=== PATIENT | male | born 1965 | race Hispanic/Latino ===

== ENCOUNTER 2017-02-13 22:13 | Emergency (ER) | payer OTHER ==
--- NOTE | 2017-02-13 22:20 | ED GI/GU/ABDOMINAL COMPLAINT ---
History of Present Illness General Chief Complaint: General Adult Stated Complaint: "I FEEL LIKE I CAN'T PEE" Source: patient, EMS, police Exam Limitations: no limitations Vital Signs & Intake/Output Vital Signs & Intake/Output Vital Signs Date Time Temp Pulse Resp B/P Pulse O2 O2 Flow FiO2 Ox Delivery Rate 02/130 98.0 78 16 126/67 02/13 2219 98.0 78 16 126/67 98 Room Air Room Air Allergies Coded Allergies: No Known Allergies (02/13/17) Reconcile Medications Alprazolam (Unknown Strength) TABLET (Unknown Dose) PO DAILY ANXIETY ( Reported) Diphenhydramine HCl (Benadryl) (Unknown Strength) CAPSULE (Unknown Dose) PO AD PRN UNKNOWN (Reported) Metformin HCl (Glucophage) (Unknown Strength) TABLET (Unknown Dose) PO BID DM (Reported) Tamsulosin HCl (Flomax) 0.4 MG CAP.ER.24H 1 CAP PO DAILY URINARY (Reported) Triage Note: PT BIBA FROMPOLICE CUSTODY FOR TORUBLEURINATING FOR 3 DAYS.STATES HE NEEDS FLOMAX Triage Nurses Notes Reviewed? yes HPI: Patient brought in from police lockup for urinary retention. Patient states that he has BPH and has been off of his Flomax for the past 3 days because he ran out of them. Patient has been in lockup since this afternoon and states that he has not P in the past few hours. Patient states this was happens to him when he runs out of Flomax but he is able to P a few hours after taking the Flomax. Patient refuses to have a catheter put in. Patient states that he has a pressure sensation over his bladder. The pain is constant. He rates the pain as 6 out of 10. There is no radiation. There are no aggravating or mitigating factors. Patient also states that he feels very anxious and he occasionally takes Xanax however he does not have it with him. Patient denies any suicidal or homicidal ideations. Past History Travel History Traveled to [place] past 21 day No Medical History Any Pertinent Medical History? see below for history Neurological: NONE EENT: NONE Cardiovascular: NONE Respiratory: NONE Gastrointestinal: NONE Hepatic: NONE Renal: BPH Musculoskeletal: NONE Psychiatric: anxiety Endocrine: NONE Blood Disorders: NONE Cancer(s): NONE CRIBBER/Reproductive: NONE Surgical History Surgical History: non-contributory Psychosocial History What is your primary language Bah[place]i Tobacco Use: Current Daily Use Daily Tobacco Use Amount/Type: => 5 Cigarettes daily ETOH Use: denies use Illicit Drug Use: denies illicit drug use Family History Hx Contributory? No Review of Systems Review of Systems Constitutional: Reports: no symptoms. EENTM: Reports: no symptoms. Respiratory: Reports: no symptoms. Cardiovascular: Reports: no symptoms. GI: Reports: no symptoms. Genitourinary: Reports: see HPI, hesitation. Musculoskeletal: Reports: no symptoms. Skin: Reports: no symptoms. Neurological/Psychological: Reports: see HPI, anxiety. Hematologic/Endocrine: Reports: no symptoms. Immunologic/Allergic: Reports: no symptoms. All Other Systems: Reviewed and Negative Physical Exam Physical Exam General Appearance: well developed/nourished, alert, awake, anxious, mild distress Head: atraumatic, normal appearance Eyes: Bilateral: PERRL, EOMI. Ears, Nose, Throat, Mouth: hearing grossly normal, moist mucous membrane Neck: normal inspection, supple, full range of motion Respiratory: normal breath sounds, chest non-tender, no respiratory distress, lungs clear Cardiovascular: regular rate/rhythm, normal peripheral pulses Gastrointestinal: normal bowel sounds, soft, non-tender, no organomegaly Back: normal inspection, normal range of motion, NO CVA TENDERNESS Extremities: HEALING BRUISE TO RIGHT HIP Neurologic/Psych: no motor/sensory deficits, awake, alert, oriented x 3, normal gait Skin: intact, normal color, warm/dry Core Measures ACS in differential dx? No Severe Sepsis Present: No Septic Shock Present: No Progress Differential Diagnosis: urinary retention, UTI/pyelo Plan of Care: Current Medications Sig/[place] Start time Last Medication Dose Stop Time Status Admin Alprazolam 0.5 MG ONCE ONE 02/13 2245 AC (Xanax) 02/13 2246 Initial ED EKG: none Departure Departure Disposition: HOME OR SELF CARE Condition: Stable Clinical Impression Primary Impression: Urinary retention Secondary Impressions: Anxiety Departure Forms: Customer Survey General Discharge Information Prescriptions: Current Visit Scripts Tamsulosin HCl (Flomax) 1 CAP PO DAILY #30 CAP
[2017-02-13] MEDS ORDERED: FLOMAX0.4 M1 PO ×2 (22:25→22:41)
[2017-02-13] MEDS ORDERED: GLUCOPHAGE1000 M1 PO (22:25)
[2017-02-13] MEDS ORDERED: ALPRAZOLAM1 M2 PO (22:26)
[2017-02-13] MEDS ORDERED: BENADRYL25 MG PO (22:26)
[2017-02-13 22:40] VITALS: BP 126/67
== END 2017-02-13 22:59 ==
LOC: ERH 22:13
DX: R33.9 Retention of urine, unspecified (principal); F41.9 Anxiety disorder, unspecified